=== PATIENT | male | born 1950 | race Caucasian/White ===

== ENCOUNTER → 2016-10-27 | Outpatient (CLI) | payer MEDICARE, BC ==
[~2016-10-27] MED LIST: ASPIRIN325 MG PO; COZAAR25 MG PO; CPAP INH; FUROSEMIDE40 MG PO; KLOR-CON 1010 MEQ PO; PERCOCET 5-3251 EACH PO; TIKOSYN250 MCG PO; XARELTO20 MG PO
[2016-10-27 13:48] LABS: BASOPHIL # 0.1 K/uL (0.0-0.2); BASOPHIL % 0.7 %; EOSINOPHIL # 0.3 K/uL (0.0-0.5); HEMATOCRIT 39.7 % (37.0-53.0); HEMOGLOBIN 12.6 g/dL (11.0-16.0); IMMATURE GRANULOCYTE % 0.1 %; LYMPHOCYTE # 1.6 K/uL (0.8-4.0); LYMPHOCYTE % 23.1 %; MCHC 31.7 gm/dL (32.0-36.5); MCV 94.5 fl (83.0-98.0); MONOCYTE # 0.6 K/uL (0.0-1.0); MONOCYTE % 8.5 %; MPV 9.7 fl (9.4-12.4); NEUTROPHIL # (ANC) 4.3 K/uL (1.4-9.0); NEUTROPHIL % 63.6 %; NRBC % 0 /100WBC (0-0.00); PLATELET COUNT 262 K/uL (150-450); RDW-CV 15.1 % (11.9-14.6); WBC 6.7 K/uL (4.0-11.0)
== END | disposition disaster alternative care site (69) ==
LOC: LCNC 13:44
PROVIDERS: Internal Medicine Interventional Cardiology
DX: R00.1 Bradycardia, unspecified (principal)

== ENCOUNTER → 2016-12-04 | Outpatient (CLI) | payer MEDICARE, BC | END | disposition disaster alternative care site (69) | LOC: GRAD 11:00 | DX: N50.82 Scrotal pain (principal); N43.3 Hydrocele, unspecified ==

== ENCOUNTER 2016-12-17 05:24 | Day surgery (SDC) | payer MEDICARE, BC ==
[~2016-12-17] VITALS: Ht 180.3 cm; Wt 174.4 kg
--- NOTE | ~2016-12-17 | OR ---
PATIENT'S NAME: CROW QUAN [facility] AGE: 66 Y [address] ROOM: [place] [address] [place] [facility] [place]: 12/17/[place] OR/Procedure Report DISCHARGE DATE: FAMILY PHYSICIAN: Saravanan Thurman MD ATTENDING PHYSICIAN: David Cavazos SURGEON: David Cavazos MD PRINCIPAL ELECTRICAL ENGINEER: DATE OF PROCEDURE: 12/17/2016 PREOPERATIVE DIAGNOSES: 1. Hydrocele, right. 2. Severe phimosis with inflammation of prepuce. POSTOPERATIVE DIAGNOSES: 1. Hydrocele, right. 2. Urethral meatal stenosis. 3. Phimosis with chronic inflammation. 4. Severe scarring glans penis to surrounding tissue. PROCEDURE: 1. Hydrocelectomy. 2. Circumcision revision. 3. Meatotomy with urethral dilatation and insertion of catheter. DESCRIPTION OF PROCEDURE: After adequate anesthesia, he was prepped and draped. An incision was made in the right hemiscrotum. The right hydrocele and testicle was exposed, and the hydrocele was opened. The redundant sac was resected and then it was repaired using a Lord technique with 3-0 Vicryl. Testicle was placed back in its normal anatomical position and then closed with 3-0 Vicryl and 4-0 plain. Attention was then turned to the penis area. He had severe inflammation of the remaining prepuce and could not expose the glans penis. Therefore, a ventral and dorsal slit was done, again even after this was done could not adequately expose the glans penis. It was totally scarred in with surrounding tissue, the worst mess I have ever seen. With sharp dissection, I was able to free the glans penis from the surrounding area, and then after it was exposed adequately, it was still fixed, could not be pulled up at all. The meatus was difficult to see because of stenosis. I then passed the filiform to locate the meatus and then I was able to dilate it with Ami sounds to 22- Turkmen. A 20 Stevens catheter was then inserted. After this was done, I still needed to do some sharp dissection to completely free up the glans, and then the PATIENT'S NAME: CROW QUAN [facility] AGE: 66 Y [address] ROOM: [place] [address] [place] [facility] [place]: 12/17/2016 OR/Procedure Report DISCHARGE DATE: FAMILY PHYSICIAN: Saravanan Thurman MD ATTENDING PHYSICIAN: David Cavazos redundant, inflamed, nasty looking remaining prepuce was excised and it was sutured back with 3-0 Vicryl. Dressing was applied. The catheter was left in place, and he was accompanied to recovery area. DAVID CAVAZOS MD EKL/modl /[id number] d: 12/17/16 0934 t: 12/19/16 0410, OPERATIVE SUMMARY
--- NOTE | ~2016-12-17 | HP ---
PATIENT'S NAME: BELLO QUAN [facility] AGE: 66 Y [address] ROOM: [place] [address] LOCATION: [facility] [place] ADMIT DATE: 12/17/2016 History & Physical DISCHARGE DATE: 12/17/2016 FAMILY PHYSICIAN: Saravanan Thurman MD ATTENDING PHYSICIAN: David Cavazos DATE OF SERVICE: ADDENDUM: This is Dr. Cavazos concerning update on history and physical on [place]. I dictated this the day before surgery and I then signed it on the chart. This update requested is from Dr. Caldwell's office, which I have nothing to do with. That H and P does not need to be updated. DAVID CAVAZOS MD EKL/tyrell /[id number] D: [id number] T: [id number] HISTORY & PHYSICAL
--- NOTE | ~2016-12-17 | HP ---
PATIENT'S NAME: CROW QUAN [facility] AGE: 66 Y [address] ROOM: [place] [address] [place] [facility] [place]: History & Physical DISCHARGE DATE: FAMILY PHYSICIAN: Saravanan Thurman MD ATTENDING PHYSICIAN: Jamie Cavazos DATE OF SERVICE: HISTORY: A 66-year-old male, who has enlarging mass in the right hemiscrotal area, which now has increased to the size and this causes him discomfort and wants it repaired. He also has problems with his remaining for prepuce and penile skin with inflammation, both the remaining prepuce and meatus, he has had circumcision in 2011. Ultrasound study was done and this showed a large right hydrocele with no other abnormalities. He does have a history of having atrial fibrillation. Dr. Caldwell's office was contacted and they recommend stopping his Xarelto, until after his hydrocele repair. PAST MEDICAL HISTORY: Illnesses: 1. Atrial fibrillation. 2. Hypertension. Operations: 1. Carpal tunnel. 2. Knee arthroscopy. ALLERGIES: NONE KNOWN. PHYSICAL EXAMINATION: GENERAL: A well-developed, obese male, 382 pounds, 122/64. CHEST: Clear. HEART: Irregular rate. ABDOMEN: Soft and obese, specially in the suprapubic area. : The penis is hard to examine because it is imbedded in his suprapubic fat, but there is marked inflammation of the remaining prepuce and glans. He has huge right hydrocele. Prostate is normal to palpation. IMPRESSION: PATIENT'S NAME: CROW QUAN [facility] AGE: 66 Y [address] ROOM: [place] [address] LOCATION: [facility] [place] DATE: History & Physical DISCHARGE DATE: FAMILY PHYSICIAN: Saravanan Thurman MD ATTENDING PHYSICIAN: Jamie Cavazos 1. Hydrocele, right. 2. Chronic balanoposthitis. PLAN: Hydrocelectomy, possible circumcision revision. JAMIE CAVAZOS MD EKL/modl /[id number] D: 36 HISTORY & PHYSICAL
[~2016-12-17 05:24] MED LIST changes: -PERCOCET 5-3251 EACH PO
[2016-12-17 05:59] LABS: BASOPHIL # 0.1 K/uL (0.0-0.2); EOSINOPHIL # 0.3 K/uL (0.0-0.5); EOSINOPHIL % 4.4 %; HEMATOCRIT 40.9 % (37.0-53.0); HEMOGLOBIN 13.1 g/dL (11.0-16.0); IMMATURE GRANULOCYTE % 0.3 %; LYMPHOCYTE # 1.7 K/uL (0.8-4.0); LYMPHOCYTE % 29.3 %; MCH 30.1 pg (27.0-34.0); MONOCYTE # 0.6 K/uL (0.0-1.0); MONOCYTE % 10.5 %; MPV 9.4 fl (9.4-12.4); NEUTROPHIL # (ANC) 3.2 K/uL (1.4-9.0); NEUTROPHIL % 54.5 %; NRBC % 0 /100WBC (0-0.00); PLATELET COUNT 273 K/uL (150-450); RBC 4.35 M/uL (3.50-5.50); RDW-CV 15.1 % (11.9-14.6); WBC 5.9 K/uL (4.0-11.0)
[2016-12-17 07:07] LABS: PCO2 41 mmHg (35-45)
[2016-12-17 07:09] LABS: BICARBONATE 25.3 mmol/L (18.0-23.0); PO2 47 mmHg (80-90); POTASSIUM 3.9 mEq/L (3.7-5.1); SODIUM 140 mEq/L (135-145)
[2016-12-17] MEDS ORDERED: PERCOCET 5-3251 EACH PO (10:27)
== END 2016-12-17 12:00 | disposition disaster alternative care site (69) ==
LOC: GSDC 05:24 → GPOC 05:30 → GSDC 12:00
PROVIDERS: Nurse Anesthetist, Certified Registered; Urology
PROC: 0VB60ZZ Excision of Right Tunica Vaginalis, Open Approach (ICD-10-PCS; principal; 2016-12-17)
PROC: 0VTTXZZ Resection of Prepuce, External Approach (ICD-10-PCS; 2016-12-17)
PROC: 0T7D0ZZ Dilation of Urethra, Open Approach (ICD-10-PCS; 2016-12-17)
DX: N43.3 Hydrocele, unspecified (principal); L90.0 Lichen sclerosus et atrophicus; N35.9 Urethral stricture, unspecified; I48.0 Paroxysmal atrial fibrillation; I10 Essential (primary) hypertension; E03.9 Hypothyroidism, unspecified; G47.33 Obstructive sleep apnea (adult) (pediatric); E66.9 Obesity, unspecified; Z96.659 Presence of unspecified artificial knee joint; Z98.890 Other specified postprocedural states; Z87.891 Personal history of nicotine dependence; Z79.01 Long term (current) use of anticoagulants; Z79.899 Other long term (current) drug therapy
CPT/HCPCS: J1100; J2765; J7030